=== PATIENT | female | born 1970 | race African-American/Black ===

== ENCOUNTER 2020-02-01 07:45 | Day surgery (SDC) | payer OTHER, SELFPAY ==
[~2020-02-01] VITALS: Ht 175.3 cm; Wt 103.0 kg
[2020-02-01] MEDS ORDERED: fentaNYL citrate 0.05 MG/ML VIAL ONE (08:26)
[2020-02-01] MEDS ORDERED: LIDOCAINE 2% 100 MG/5 ML UJET TP ONE ×2 (08:27→09:30)
[2020-02-01] MEDS ORDERED: MIDAZOLAM 2 MG/2 ML VIAL ONE (08:27)
[2020-02-01] MEDS ORDERED: MIDAZOLAM 2 MG/2 ML VIAL IVP ONE (09:30)
[2020-02-01] MEDS ORDERED: fentaNYL citrate 0.05 MG/ML VIAL IVP ONE (09:30)
== END 2020-02-01 09:55 | disposition home or self-care (01) ==
LOC: MDS 07:45 → MMU 07:47 → MDS 09:55
PROVIDERS: ATTEND Internal Medicine Gastroenterology
DX: Z12.11 Encounter for screening for malignant neoplasm of colon (principal); I10 Essential (primary) hypertension; Z88.8 Allergy status to other drugs, medicaments and biological substances; Z79.899 Other long term (current) drug therapy; Z90.710 Acquired absence of both cervix and uterus; Z20.828 Contact with and (suspected) exposure to other viral communicable diseases; Z98.82 Breast implant status
CPT/HCPCS: 45378; J2250; J3010; J7030; U0003